=== PATIENT | female | born 1995 | race Caucasian/White ===

== ENCOUNTER → 2022-05-09 | Outpatient (CLI) | payer OTHER ==
[~2022-05-09] MED LIST: DOLOGESIC 500-1 EACH PO; PRENATAL + DHA1 EAC1 PO
== END | disposition home or self-care (01) ==
LOC: PRENATAL 12:38
PROVIDERS: ATTEND Obstetrics & Gynecology Maternal & Fetal Medicine
DX: O35.0XX0 Maternal care for (suspected) central nervous system malformation in fetus, not applicable or unspecified (principal); O28.1 Abnormal biochemical finding on antenatal screening of mother; Z3A.22 22 weeks gestation of pregnancy

== ENCOUNTER 2022-07-18 13:43 | Outpatient (CLI) | payer OTHER | END 2022-07-18 15:30 | disposition home or self-care (01) | LOC: PRENATAL 13:43 | PROVIDERS: ATTEND Obstetrics & Gynecology Maternal & Fetal Medicine | DX: O26.849 Uterine size-date discrepancy, unspecified trimester (principal); O36.8199 Decreased fetal movements, unspecified trimester, other fetus; O28.1 Abnormal biochemical finding on antenatal screening of mother; Z3A.32 32 weeks gestation of pregnancy ==